=== PATIENT | female | born 1970 | race Caucasian/White ===

== ENCOUNTER 2018-05-18 21:31 | Emergency (ER) | payer BC ==
[2018-05-18 21:48] VITALS: O2SAT 100
[2018-05-18] MEDS ORDERED: BENADRYL 50 MG/ML IV ONE (21:48)
[2018-05-18] MEDS ORDERED: BENADRYL 50 MG/ML ONE (21:55)
--- NOTE | 2018-05-18 21:56 | ERPHSYRPT ---
- History of Present Illness Time Seen by Provider: 05/18/18 21:44 Source: patient Exam Limitations: no limitations Patient Subjective Stated Complaint: Pt arrives to ER with c/o lower lip swelling started around 2044 after eating pasta salad around 1999 that includes black olives stating she had never had olives before. States is only allergic to latex, PCN, Sulfa and teramycin. Denies difficulty breathing or swallowing. Swelling is minor. States mouth is dry from eating tic-tacs but denies tongue swelling. Triage Nursing Assessment: no distress at this time. Physician History: This is a 48-year-old female with history of multiple sclerosis, who is on Getia She arrives with complaint of swollen left lower lip symptoms for approximately one hour She states this began after she ate of pot the salad which contained black olives. She denies any shortness of breath she denies any tongue swelling she denies any other complaints. She states she took one 25 mg Benadryl tablets prior to arrival. Past medical history includes multiple sclerosis past surgical history positive for cholecystectomy and . Timing/Duration: today (20:45) Severity: mild Modifying Factors: Improves With: nothing, other (patient on lisinopril) Associated Symptoms: other (swelling left lower lip), No nausea, No vomiting, No abdominal pain, No shortness of breath, No heartburn, No diaphoresis, No cough, No chills, No chest pain, No fever, No headaches, No loss of appetite, No malaise, No rash, No syncope, No seizure, No weakness Allergies/Adverse Reactions: latex Allergy (Verified 05/18/18 21:42) oxytetracycline [From Terramycin] Allergy (Verified 05/18/18 21:42) Penicillins Allergy (Verified 05/18/18 21:42) Sulfa (Sulfonamide Antibiotics) Allergy (Verified 05/18/18 21:42) Home Medications: Fingolimod HCl [Gilenya] 0.5 mg PO 05/18/18 [History] Lisinopril 20 mg PO 05/18/18 [History] Norgestimate-Ethinyl Estradiol [Tri Femynor 28 Tablet] 1 tab PO 05/18/18 [ History] Ropinirole HCl 0.25 mg PO 05/18/18 [History] Tramadol HCl 50 mg [Ultram 50 mg] 50 mg PO 05/18/18 [History] - Review of Systems Constitutional: No Fever, No Chills Eyes: No Symptoms Ears, Nose, & Throat: Mouth Swelling (swelling left lower lip), Other, No Ear Pain, No Ear Discharge, No Hearing Changes, No Tinnitus, No Nose Pain, No Nose Congestion, No Nose Discharge, No Sinus Drainage, No Epistaxis, No Mouth Pain, No Loose Teeth Respiratory: No Cough, No Dyspnea Cardiac: No Chest Pain, No Edema, No Syncope Abdominal/Gastrointestinal: No Abdominal Pain, No Nausea, No Vomiting, No Diarrhea Genitourinary Symptoms: No Dysuria Musculoskeletal: No Back Pain, No Neck Pain Skin: No Rash Neurological: No Dizziness, No Focal Weakness, No Sensory Changes Psychological: No Symptoms Endocrine: No Symptoms All Other Systems: Reviewed and Negative - Past Medical History Pertinent Past Medical History: Yes Neurological History: No Pertinent History ENT History: No Pertinent History Cardiac History: Hypertension Respiratory History: No Pertinent History Endocrine Medical History: No Pertinent History Musculoskeletal History: No Pertinent History GI Medical History: No Pertinent History History: No Pertinent History Psycho-Social History: No Pertinent History Female Reproductive Disorders: No Pertinent History Other Medical History: Multiple Sclerosis - Past Surgical History Past Surgical History: Yes Neuro Surgical History: No Pertinent History Cardiac: No Pertinent History Respiratory: No Pertinent History Gastrointestinal: Cholecystectomy Genitourinary: No Pertinent History Musculoskeletal: No Pertinent History Female Surgical History: Section - Social History Smoking Status: Never smoker Exposure to second hand smoke: No Drug Use: none Patient Lives Alone: No - Female History Hx Now: No - Nursing Vital Signs Nursing Vital Signs: Initial Vital Signs Temperature 98.7 F 05/18/18 21:34 Pulse Rate 87 05/18/18 21:34 Respiratory Rate 18 05/18/18 21:34 Blood Pressure 182/110 05/18/18 21:34 O2 Sat by Pulse Oximetry 100 05/18/18 21:34 Pain Scale Pain Intensity 0 - Physical Exam General Appearance: no apparent distress, alert Eye Exam: PERRL/EOMI, eyes nml inspection Ears, Nose, Throat Exam: TMs normal, pharynx normal, moist mucous membranes, other (mild swelling left lower lip), No pharyngeal erythema Neck Exam: normal inspection, non-tender, supple, full range of motion Respiratory Exam: normal breath sounds, lungs clear, No respiratory distress Cardiovascular Exam: regular rate/rhythm, normal heart sounds, normal peripheral pulses Gastrointestinal/Abdomen Exam: soft, normal bowel sounds, No tenderness, No mass Back Exam: normal inspection, normal range of motion, No CVA tenderness, No vertebral tenderness Extremity Exam: normal inspection, normal range of motion, pelvis stable Neurologic Exam: alert, oriented x 3, cooperative, 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, normal mood/affect, nml cerebellar function, nml station & gait, sensation nml, No motor deficits Skin Exam: normal color, warm, dry, No rash SpO2 Interpretation: normal (100%) SpO2: 100 Oxygen Delivery: Room Air - Course Nursing assessment & vital signs reviewed: Yes Ordered Tests: Active Orders 24 hr Category Date Time Status IV Insertion STAT Care 05/18/18 21:48 Active Medication Summary Discontinued Medications Generic Name Dose Route Start Last Admin Trade Name Freq PRN Reason Stop Dose Admin Diphenhydramine HCl 25 mg 05/18/18 21:48 05/18/18 22:05 Benadryl 50 Mg/Ml IV 05/18/18 21:49 25 mg STAT ONE Administration Diphenhydramine HCl Confirm 05/18/18 21:55 Benadryl 50 Mg/Ml Administered 05/18/18 21:56 Dose 50 mg .ROUTE .STK-MED ONE - Progress Progress: improved Progress Note: 05/18/18 22:51 This is a 48-year-old white female with a history of multiple sclerosis, high blood pressure She arrives with complaint of swelling on the left side of her lower lip after eating Pasta salad just prior to arrival. She denies any shortness of breath she has no tongue swelling or throat swelling She had taken Benadryl 25 mg orally prior to arrival she is given Benadryl 25 mg IV. She is feeling better she has noted swelling of her face or tongue she does have still has some slight swelling of her lower lip on the left. Patient is on lisinopril for high blood pressure. She is also on an Immuno modulator for her MS. Will plan to discharge patient Vitals are stable patient in no acute distress. Patient to avoid the pasta salad I've also advised that she does not take her lisinopril until she discusses this with her family doctor tomorrow. Patient was not given Solu-Medrol secondary to the fact she is on immuno modultor. - Departure Time of Disposition: 22:55 Departure Disposition: Home Clinical Impression: lower lip edema, rule out angioedema Allergic reaction Qualifiers: Encounter type: initial encounter Qualified Code(s): T78.40XA - Allergy, unspecified, initial encounter Condition: Fair Critical Care Time: No Referrals: LOBO LOCKHART MD [Primary Care Provider] - Additional Instructions: Return home. Plenty of fluids. Benadryl 50 mg orally every 6 hours for the next 2-3 days. Do not need anymore of your Pasta salad. Do not take your lisinopril tomorrow until you discuss this with your family doctor. Contact your family doctor tomorrow and arrange follow-up. Return for acute distress or for severe symptoms. return for any swelling of your tongue, throat, or difficulty breathing
[2018-05-18 22:59] VITALS: BP 164/82; PULSE 86
== END 2018-05-18 23:07 | disposition home or self-care (01) ==
LOC: ED 21:31
DX: R22.0 Localized swelling, mass and lump, head (principal); T78.40XA Allergy, unspecified, initial encounter
CPT/HCPCS: 36000; 96374; 99284; J1200

== ENCOUNTER 2018-07-11 03:10 | Observation (INO) | payer BC ==
[2018-07-11] MEDS ORDERED: Pepcid 20 MG VIAL IV ONE ×2 (03:32→03:37)
[2018-07-11] MEDS ORDERED: Sodium Chloride 0.9% 1000 ML 1,000 ML IV STA (03:32)
[2018-07-11] MEDS ORDERED: Zofran 4 MG/2 ML VIAL IV ONE (03:32)
[2018-07-11] MEDS ORDERED: TORAdol 30 mg Injection IV ONE (03:32)
[2018-07-11] MEDS ORDERED: TORAdol 30 mg Injection ONE (03:37)
[2018-07-11] MEDS ORDERED: Zofran 4 MG/2 ML VIAL ONE (03:37)
[2018-07-11] MEDS ORDERED: Sodium Chloride 0.9% 1000 ML 1,000 ML ONE (03:37)
--- NOTE | 2018-07-11 03:37 | ERPHSYRPT ---
- History of Present Illness Time Seen by Provider: 07/11/18 03:29 Historian: patient Exam Limitations: no limitations Patient Subjective Stated Complaint: Pt arrives to ER with c/o diffuse abdominal pain started around 1999. States 3-4 weeks ago had injury to knee concerned for MRSA and was given Keflex which gave her abdominal pain and was decreased in dose. Pt states pain went away but has now returned. pt also mentions hx of MS. Pt also c/o nausea without vomiting or diarrhea. Denies fever or any other sx. Does not appear to be in any acute distress at this time rating pain 5/10 but states "before I came in my pain was a 30". Triage Nursing Assessment: see above Physician History: C/o diffuse abdominal pain, cramps, nausea since yesterday afternoon, denies vomiting, diarrhea, fever, chills, urinary complaints, no chest pain, cough or SOB. Timing/Duration: yesterday, hour(s) (12) Activities at Onset: none Quality: cramping Abdominal Pain Onset Location: generalized abdomen Pain Radiation: no radiation Severity of Pain-Max: severe Severity of Pain-Current: mild Modifying Factors: Improves With: nothing Associated Symptoms: nausea Previous symptoms: no prior history Allergies/Adverse Reactions: latex Allergy (Verified 07/11/18 03:23) oxytetracycline [From Terramycin] Allergy (Verified 07/11/18 03:23) Penicillins Allergy (Verified 07/11/18 03:23) Sulfa (Sulfonamide Antibiotics) Allergy (Verified 07/11/18 03:23) Home Medications: Fingolimod HCl [Gilenya] 0.5 mg PO 05/18/18 [History] Lisinopril 20 mg PO 05/18/18 [History] Norgestimate-Ethinyl Estradiol [Tri Femynor 28 Tablet] 1 tab PO 05/18/18 [ History] Ropinirole HCl 0.25 mg PO 05/18/18 [History] Tramadol HCl 50 mg [Ultram 50 mg] 50 mg PO 05/18/18 [History] - Review of Systems Constitutional: No Symptoms Abdominal/Gastrointestinal: Abdominal Pain, Nausea All Other Systems: Reviewed and Negative - Past Medical History Pertinent Past Medical History: Yes Neurological History: No Pertinent History ENT History: No Pertinent History Cardiac History: Hypertension Respiratory History: No Pertinent History Endocrine Medical History: No Pertinent History Musculoskeletal History: No Pertinent History GI Medical History: No Pertinent History History: No Pertinent History Psycho-Social History: No Pertinent History Female Reproductive Disorders: No Pertinent History Other Medical History: Multiple Sclerosis - Past Surgical History Past Surgical History: Yes Neuro Surgical History: No Pertinent History Cardiac: No Pertinent History Respiratory: No Pertinent History Gastrointestinal: Cholecystectomy Genitourinary: No Pertinent History Musculoskeletal: No Pertinent History Female Surgical History: Section - Social History Smoking Status: Never smoker Exposure to second hand smoke: No Drug Use: none Patient Lives Alone: No - Female History Hx Now: No - Nursing Vital Signs Nursing Vital Signs: Initial Vital Signs Temperature 97.6 F 07/11/18 03:14 Pulse Rate 87 07/11/18 03:14 Respiratory Rate 22 07/11/18 03:14 Blood Pressure 138/86 07/11/18 03:14 O2 Sat by Pulse Oximetry 99 07/11/18 03:14 Pain Scale Pain Intensity 2 - Physical Exam General Appearance: no apparent distress Eye Exam: eyes nml inspection Ears, Nose, Throat Exam: normal ENT inspection Neck Exam: normal inspection, non-tender, supple Respiratory Exam: normal breath sounds, lungs clear Cardiovascular Exam: regular rate/rhythm, normal heart sounds, normal peripheral pulses Gastrointestinal/Abdomen Exam: soft, normal bowel sounds, tenderness (diffuse), No distention, No mass, No guarding, No rebound, No hernia Back Exam: normal inspection, No CVA tenderness Extremity Exam: normal inspection Neurologic Exam: alert, oriented x 3, normal mood/affect Skin Exam: normal color, warm, dry, No rash Lymphatic Exam: No adenopathy SpO2 Interpretation: normal SpO2: 99 Oxygen Delivery: Room Air - Course Nursing assessment & vital signs reviewed: Yes EKG Interpreted by Me: RATE (87/min), NORMAL AXIS, NORMAL INTERVALS, NORMAL ST-T - CT Exams Abdomen/Pelvis CT Interpretation: Discussed w/radiologist, Other (moderate amount of complex free fluid in the abdomen and pelvis suggesting hemoperitoneum, uncertain etiology.) Ordered Tests: Active Orders 24 hr Category Date Time Status EKG-ER Only STAT Care 07/11/18 03:32 Active IV Insertion STAT Care 07/11/18 03:32 Active NPO (ED) STAT Care 07/11/18 03:32 Active ABDOMEN AND PELVIS W CONTRAST [CT] Stat Exams 07/11/18 03:33 Taken AMYLASE Stat Lab 07/11/18 03:35 Completed CBC W DIFF Stat Lab 07/11/18 03:35 Completed CMP Stat Lab 07/11/18 03:35 Completed HCG QUALITATIVE,SERUM Stat Lab 07/11/18 03:30 Completed LIPASE Stat Lab 07/11/18 03:35 Completed TROPONIN Q3H Lab 07/11/18 03:35 Completed TROPONIN Q3H Lab 07/11/18 06:33 Received TROPONIN Q3H Lab 07/11/18 09:45 Ordered TROPONIN Q3H Lab 07/11/18 12:45 Ordered TROPONIN Q3H Lab 07/11/18 15:45 Ordered UA W/RFX UR CULTURE Stat Lab 07/11/18 06:20 Received Medication Summary Discontinued Medications Generic Name Dose Route Start Last Admin Trade Name Freq PRN Reason Stop Dose Admin Famotidine 20 mg 07/11/18 03:32 07/11/18 03:55 Pepcid 20 Mg Vial IV 07/11/18 03:33 20 mg STAT ONE Administration Famotidine Confirm 07/11/18 03:37 Pepcid 20 Mg Vial Administered 07/11/18 03:38 Dose 20 mg IV .STK-MED ONE Sodium Chloride 1,000 mls @ 999 mls/hr 07/11/18 03:32 07/11/18 04:55 Sodium Chloride 0.9% 1000 Ml IV 07/11/18 04:32 Infused .Q1H1M STA Infusion Sodium Chloride Confirm 07/11/18 03:37 Sodium Chloride 0.9% 1000 Ml Administered 07/11/18 03:38 Dose 1,000 mls @ ud .ROUTE .STK-MED ONE Ketorolac Tromethamine 30 mg 07/11/18 03:32 07/11/18 03:55 Toradol 30 Mg Injection IV 07/11/18 03:33 30 mg STAT ONE Administration Ketorolac Tromethamine Confirm 07/11/18 03:37 Toradol 30 Mg Injection Administered 07/11/18 03:38 Dose 30 mg .ROUTE .STK-MED ONE Ondansetron HCl 4 mg 07/11/18 03:32 07/11/18 03:55 Zofran 4 Mg/2 Ml Vial IV 07/11/18 03:33 4 mg STAT ONE Administration Ondansetron HCl Confirm 07/11/18 03:37 Zofran 4 Mg/2 Ml Vial Administered 07/11/18 03:38 Dose 4 mg .ROUTE .STK-MED ONE Lab/Rad Data: Laboratory Result Diagrams 07/11/18 03:35 07/11/18 03:35 Laboratory Results 07/11/18 07/11/18 07/11/18 Range/Units 03:35 03:35 03:35 WBC 13.4 H (4.0-10.5) K/mm3 RBC 4.51 (4.1-5.4) M/mm3 Hgb 13.1 (12.0-16.0) gm/dl Hct 40.1 (35-47) % MCV 88.9 (78-100) fl MCH 29.0 (26-32) pg MCHC 32.7 (32-36) g/dl RDW 14.3 H (11.5-14.0) % Plt Count 222 (150-450) K/mm3 MPV 12.6 H (6-9.5) fl Gran % 89.2 H (36.0-66.0) % Eos # (Auto) 0.10 (0-0.5) Absolute Lymphs (auto) 0.44 L (1.0-4.6) Absolute Monos (auto) 0.90 (0.0-1.3) Lymphocytes % 3.3 L (24.0-44.0) % Monocytes % 6.7 (0.0-12.0) % Eosinophils % 0.7 (0.00-5.0) % Basophils % 0.1 (0.0-0.4) % Absolute Granulocytes 11.98 H (1.4-6.9) Basophils # 0.02 (0-0.4) Sodium 138 (137-145) mmol/L Potassium 4.6 (3.5-5.1) mmol/L Chloride 102 (98-107) mmol/L Carbon Dioxide 28 (22-30) mmol/L Anion Gap 13.0 (5-15) MEQ/L BUN 17 (7-17) mg/dL Creatinine 0.44 L (0.52-1.04) mg/dL Estimated GFR > 60.0 ML/MIN Glucose 112 H (74-106) mg/dL Calcium 9.8 (8.4-10.2) mg/dL Total Bilirubin 0.40 (0.2-1.3) mg/dL AST 18 (14-36) U/L ALT 11 (0-35) U/L Alkaline Phosphatase 60 (38-126) U/L Troponin I < 0.012 (0.000-0.034) ng/mL Serum Total Protein 7.3 (6.3-8.2) g/dL Albumin 4.2 (3.5-5.0) g/dL Amylase 72 (30-110) U/L Lipase 113 (23-300) U/L Serum , Qual (Negative) Slides for Path Review YES 07/11/18 Range/Units 03:30 WBC (4.0-10.5) K/mm3 RBC (4.1-5.4) M/mm3 Hgb (12.0-16.0) gm/dl Hct (35-47) % MCV (78-100) fl MCH (26-32) pg MCHC (32-36) g/dl RDW (11.5-14.0) % Plt Count (150-450) K/mm3 MPV (6-9.5) fl Gran % (36.0-66.0) % Eos # (Auto) (0-0.5) Absolute Lymphs (auto) (1.0-4.6) Absolute Monos (auto) (0.0-1.3) Lymphocytes % (24.0-44.0) % Monocytes % (0.0-12.0) % Eosinophils % (0.00-5.0) % Basophils % (0.0-0.4) % Absolute Granulocytes (1.4-6.9) Basophils # (0-0.4) Sodium (137-145) mmol/L Potassium (3.5-5.1) mmol/L Chloride (98-107) mmol/L Carbon Dioxide (22-30) mmol/L Anion Gap (5-15) MEQ/L BUN (7-17) mg/dL Creatinine (0.52-1.04) mg/dL Estimated GFR ML/MIN Glucose (74-106) mg/dL Calcium (8.4-10.2) mg/dL Total Bilirubin (0.2-1.3) mg/dL AST (14-36) U/L ALT (0-35) U/L Alkaline Phosphatase (38-126) U/L Troponin I (0.000-0.034) ng/mL Serum Total Protein (6.3-8.2) g/dL Albumin (3.5-5.0) g/dL Amylase (30-110) U/L Lipase (23-300) U/L Serum , Qual NEGATIVE (Negative) Slides for Path Review - Progress Progress: improved Progress Note: 07/11/18 06:45 I discussed the results and her current condition with Dr Ramonita Lord, surgeon and Dr Pickens, they accepted her to be admitted for observation. Patient has been hemodynamically stable, they were informed about admission, agreed. Discussed with Dr.: Daysi Pickens Will see patient in: hospital (observation) Counseled pt/family regarding: lab results, diagnosis, need for follow-up, rad results - Departure Time of Disposition: 06:47 Departure Disposition: Observation Clinical Impression: Hemoperitoneum (nontraumatic) Condition: Stable Critical Care Time: No Referrals: LOBO PICKENS MD [Primary Care Provider] -
[2018-07-11 03:46] LABS: BASOPHIL % 0.1 % (0.0-0.4); Basophil (Absolute #) 0.02 (0-0.4); Eosinophil % 0.7 % (0.00-5.0); Granulocyte Absolute (ANC) 11.98 (1.4-6.9); Granulocytes % 89.2 % (36.0-66.0); Hematocrit 40.1 % (35-47); Hemoglobin 13.1 gm/dl (12.0-16.0); Lymphocyte (Absolute #) 0.44 (1.0-4.6); Lymphocytes % 3.3 % (24.0-44.0); Mean Cell Volume 88.9 fl (78-100); Mean Corpuscular Hgb Concent. 32.7 g/dl (32-36); Mean Platelet Volume 12.6 fl (6-9.5); Monocytes % 6.7 % (0.0-12.0); Platelet Count 222 K/mm3 (150-450); Red Blood Count 4.51 M/mm3 (4.1-5.4); Red Cell Distribution Width 14.3 % (11.5-14.0); White Blood Count 13.4 K/mm3 (4.0-10.5)
[2018-07-11 04:08] LABS: ALBUMIN 4.2 g/dL (3.5-5.0); ALKALINE PHOSPHATASE 60 U/L (38-126); AMYLASE 72 U/L (30-110); BLOOD UREA NITROGEN 17 mg/dL (7-17); CHLORIDE 102 mmol/L (98-107); Calcium 9.8 mg/dL (8.4-10.2); Carbon Dioxide 28 mmol/L (22-30); Creatinine 1 0.44 mg/dL (0.52-1.04); Glucose 112 mg/dL (74-106); LIPASE 113 U/L (23-300); Potassium 4.6 mmol/L (3.5-5.1); SGOT/AST 18 U/L (14-36); SGPT/ALT 11 U/L (0-35); SODIUM 138 mmol/L (137-145); Total Protein 7.3 g/dL (6.3-8.2)
[2018-07-11 04:55] LABS: Slide Review 1 YES
[2018-07-11 06:42] LABS: Appearance SLIGHTLY CLOUDY (CLEAR); Bilirubin NEGATIVE (NEGATIVE); Blood NEGATIVE Ery/ul (0-5); Glucose NEGATIVE (NEGATIVE); Ketones NEGATIVE (NEGATIVE); Leukocyte Esterase NEGATIVE (NEGATIVE); Nitrite NEGATIVE (NEGATIVE); Protein,Urine Dip NEGATIVE (Negative); Specific Gravity 1.017 (1.005-1.025); Urobilinogen 2 mg/dL (0-1)
[2018-07-11 07:22] LABS: Hematocrit 39.4 % (35-47); Hemoglobin 12.7 gm/dl (12.0-16.0)
[2018-07-11] MEDS ORDERED: Sodium Chloride 0.9% 1000 ML 1,000 ML IV SCH (07:24)
[2018-07-11] MEDS ORDERED: Zofran 4 MG/2 ML VIAL IV PRN (07:24)
[2018-07-11] MEDS ORDERED: MORPHINE SULFATE 2 MG INJ IV PRN (07:24)
[2018-07-11 07:38] LABS: BASOPHIL % 0.1 % (0.0-0.4); Basophil (Absolute #) 0.01 (0-0.4); Eosinophil % 0.4 % (0.00-5.0); Eosinophil (Absolute #) 0.04 (0-0.5); Granulocyte Absolute (ANC) 9.54 (1.4-6.9); Lymphocytes % 3.8 % (24.0-44.0); Mean Cell Volume 89.5 fl (78-100); Mean Corpuscular Hemoglobin 28.9 pg (26-32); Mean Corpuscular Hgb Concent. 32.2 g/dl (32-36); Mean Platelet Volume 12.4 fl (6-9.5); Monocyte (Absolute #) 0.49 (0.0-1.3); Monocytes % 4.7 % (0.0-12.0); Platelet Count 215 K/mm3 (150-450); Red Cell Distribution Width 14.2 % (11.5-14.0); White Blood Count 10.5 K/mm3 (4.0-10.5)
[2018-07-11 07:49] LABS: ANION GAP 13.8 MEQ/L (5-15); BLOOD UREA NITROGEN 13 mg/dL (7-17); CHLORIDE 106 mmol/L (98-107); Calcium 9.4 mg/dL (8.4-10.2); Carbon Dioxide 25 mmol/L (22-30); Creatinine 1 0.47 mg/dL (0.52-1.04); Glucose 111 mg/dL (74-106); Potassium 4.2 mmol/L (3.5-5.1); SODIUM 140 mmol/L (137-145)
[2018-07-11] MEDS: PROTONIX 40 MG IV IV SCH (08:24)
--- NOTE | 2018-07-11 08:45 | XRAY ---
Indication: Abdomen pain and nausea. Multiple contiguous axial images obtained through the abdomen and pelvis using 80 cc Isovue 370 contrast only. Comparison: None Lung bases are clear. Heart is not enlarged. Noncontrasted stomach and bowel loops appear nonobstructed. Normal appendix. Mild/moderate diffuse scattered colonic fecal debris throughout including rectum. There is mild abdominal and pelvic free fluid but no walled off fluid collection or free air. Spleen demonstrates 2 linear defects possibly developmental clefts. Laceration not completely excluded in the right clinical setting. Previous cholecystectomy. Remaining liver, pancreas, adrenal glands, kidneys, ureters, bladder, uterus, and aorta appear unremarkable. No pathologic retroperitoneal lymphadenopathy. Osseous structures intact. Impression: 1. Abdominal and pelvic free fluid of uncertain etiology. 2. 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 Laceration not completely excluded if history of recent trauma and would also explain the free fluid/hemoperitoneum. 2. Mild fecal stasis without obstruction. Comment: Preliminary interpretation was made by [facility]. No critical discrepancy. CTDI 10.89
--- NOTE | 2018-07-11 09:18 | PCM.HP ---
History of Present Illness - Chief Complaint Chief Complaint: Hemoperitoneum History of Present Illness: is a 48 year old female pt of Dr. Pickens with MS and HTN who came in to ER and was admitted for abd pain and possible hemoperitoneum on CT abd/pelvis. She started having generalized abd pain about 3 wks ago when she took keflex for a cough. She stopped the keflex and the pain seemed to resolve. It returned last night, generalized, getting up to "30" out of 10 prior to arrival at ER. Now it has localized to the LUQ and is a "0-1"/10. She denies any abdominal trauma recently. Abd surgeries have been c/s x 2 and cholecystectomy, both remote. - Review of Systems Constitutional: Weight Loss (purposeful), No Fever, No Chills Respiratory: Cough (improving; no hemoptysis) Psychological: No Anxiety, No Depression, No Suicidal Ideations Medications & Allergies Home Medications: Home Medication List Fingolimod HCl [Gilenya] 0.5 mg PO QAM 05/18/18 [History Confirmed 07/11/18] Lisinopril 20 mg PO QAM 05/18/18 [History Confirmed 07/11/18] Norgestimate-Ethinyl Estradiol [Tri Femynor 28 Tablet] 1 tab PO QAM 05/18/18 [ History Confirmed 07/11/18] Ropinirole HCl 0.25 mg PO HS 05/18/18 [History Confirmed 07/11/18] Tramadol HCl 50 mg [Ultram 50 mg] 50 mg PO HSPRN PRN 05/18/18 [History Confirmed 07/11/18] Cholecalciferol (Vitamin D3) [Vitamin D] 4,000 unit PO QAM 07/11/18 [ History Confirmed 07/11/18] Cyanocobalamin 500 Mcg [Vitamin B-12 500 MCG] 1,500 mcg PO QAM 07/11/18 [ History Confirmed 07/11/18] L.acidoph,Paracasei, B.lactis [Probiotic] 1 each PO QAM 07/11/18 [History Confirmed 07/11/18] Allergies/Adverse Reactions: Allergies Allergy/AdvReac Type Severity Reaction Status Date / Time latex Allergy Verified 07/11/18 03:23 oxytetracycline Allergy Verified 07/11/18 03:23 [From Terramycin] Penicillins Allergy Verified 07/11/18 03:23 Sulfa (Sulfonamide Allergy Verified 07/11/18 03:23 Antibiotics) olive oil AdvReac Swelling Verified 07/11/18 07:45 of Tongue and Lips - Past Medical History Past Medical History: Yes Neurological History: Other ENT History: No Pertinent History Cardiac History: Hypertension Respiratory History: No Pertinent History Endocrine Medical History: No Pertinent History Musculoskelatal History: No Pertinent History GI Medical History: No Pertinent History History: No Pertinent History Pyscho-Social History: No Pertinent History Reproductive Disorders: No Pertinent History Comment: Multiple Sclerosis - Female History Are you now?: No - Past Surgical History Past Surgical History: Yes Neuro Surgical History: No Pertinent History Cardiac History: No Pertinent History Respiratory Surgery: No Pertinent History GI Surgical History: Cholecystectomy Genitourinary Surgical Hx: No Pertinent History Musculskeletal Surgical Hx: No Pertinent History Female Surgical History: Section Other Surgical History: 2 C sections - Social History Smoking Status: Former smoker Exposure to second hand smoke: No Alcohol: None Drug Use: none - Physical Exam Vital Signs: Vital Signs - 24 hr Temp Pulse Resp BP Pulse Ox 07/11/18 08:43 98.1 F 104 H 16 173/82 96 07/11/18 07:20 98.1 F 104 H 16 173/82 96 07/11/18 06:49 99 07/11/18 06:00 91 H 18 136/80 98 07/11/18 05:30 90 18 149/84 99 07/11/18 04:30 90 18 131/76 100 07/11/18 04:00 85 18 146/92 100 07/11/18 03:14 97.6 F 87 22 138/86 99 General Appearance: no apparent distress, alert Neurologic Exam: oriented x 3, cooperative, normal mood/affect Eye Exam: eyes nml inspection Ears, Nose, Throat Exam: moist mucous membranes Neck Exam: normal inspection, non-tender, No lymphadenopathy Respiratory Exam: normal breath sounds, lungs clear, No prolonged expirations, No crackles/rales, No rhonchi Cardiovascular Exam: regular rate/rhythm, normal heart sounds, No murmur Back Exam: normal inspection, No CVA tenderness, No rash Extremity Exam: normal inspection, No pedal edema, No swelling Skin Exam: normal color, warm, dry, No rash Results - Labs Lab/Micro Results: Lab Results-Last 24 Hours 07/11/18 07/11/18 07/11/18 Range/Units 03:30 03:35 03:35 WBC 13.4 H (4.0-10.5) K/mm3 RBC 4.51 (4.1-5.4) M/mm3 Hgb 13.1 (12.0-16.0) gm/dl Hct 40.1 (35-47) % MCV 88.9 (78-100) fl MCH 29.0 (26-32) pg MCHC 32.7 (32-36) g/dl RDW 14.3 H (11.5-14.0) % Plt Count 222 (150-450) K/mm3 MPV 12.6 H (6-9.5) fl Gran % 89.2 H (36.0-66.0) % Eos # (Auto) 0.10 (0-0.5) Absolute Lymphs (auto) 0.44 L (1.0-4.6) Absolute Monos (auto) 0.90 (0.0-1.3) Lymphocytes % 3.3 L (24.0-44.0) % Monocytes % 6.7 (0.0-12.0) % Eosinophils % 0.7 (0.00-5.0) % Basophils % 0.1 (0.0-0.4) % Absolute Granulocytes 11.98 H (1.4-6.9) Basophils # 0.02 (0-0.4) Sodium 138 (137-145) mmol/L Potassium 4.6 (3.5-5.1) mmol/L Chloride 102 (98-107) mmol/L Carbon Dioxide 28 (22-30) mmol/L Anion Gap 13.0 (5-15) MEQ/L BUN 17 (7-17) mg/dL Creatinine 0.44 L (0.52-1.04) mg/dL Estimated GFR > 60.0 ML/MIN Glucose 112 H (74-106) mg/dL Calcium 9.8 (8.4-10.2) mg/dL Total Bilirubin 0.40 (0.2-1.3) mg/dL AST 18 (14-36) U/L ALT 11 (0-35) U/L Alkaline Phosphatase 60 (38-126) U/L Troponin I (0.000-0.034) ng/mL Serum Total Protein 7.3 (6.3-8.2) g/dL Albumin 4.2 (3.5-5.0) g/dL Amylase 72 (30-110) U/L Lipase 113 (23-300) U/L Serum , Qual NEGATIVE (Negative) Urine Color (YELLOW) Urine Appearance (CLEAR) Urine pH (5-6) Ur Specific [place] (1.005-1.025) Urine Protein (Negative) Urine Ketones (NEGATIVE) Urine Blood (0-5) Tavo/ul Urine Nitrite (NEGATIVE) Urine Bilirubin (NEGATIVE) Urine Urobilinogen (0-1) mg/dL Ur Leukocyte Esterase (NEGATIVE) Urine WBC (Auto) (0-5) /HPF Urine RBC (Auto) (0-2) /HPF U Epithel Cells (Auto) (FEW) /HPF Urine Mucus (Auto) (NEGATIVE) /HPF Urine Culture Reflexed (NO) Urine Glucose (NEGATIVE) mg/dL Slides for Path Review YES 07/11/18 07/11/18 07/11/18 Range/Units 03:35 06:20 06:33 WBC (4.0-10.5) K/mm3 RBC (4.1-5.4) M/mm3 Hgb (12.0-16.0) gm/dl Hct (35-47) % MCV (78-100) fl MCH (26-32) pg MCHC (32-36) g/dl RDW (11.5-14.0) % Plt Count (150-450) K/mm3 MPV (6-9.5) fl Gran % (36.0-66.0) % Eos # (Auto) (0-0.5) Absolute Lymphs (auto) (1.0-4.6) Absolute Monos (auto) (0.0-1.3) Lymphocytes % (24.0-44.0) % Monocytes % (0.0-12.0) % Eosinophils % (0.00-5.0) % Basophils % (0.0-0.4) % Absolute Granulocytes (1.4-6.9) Basophils # (0-0.4) Sodium (137-145) mmol/L Potassium (3.5-5.1) mmol/L Chloride (98-107) mmol/L Carbon Dioxide (22-30) mmol/L Anion Gap (5-15) MEQ/L BUN (7-17) mg/dL Creatinine (0.52-1.04) mg/dL Estimated GFR ML/MIN Glucose (74-106) mg/dL Calcium (8.4-10.2) mg/dL Total Bilirubin (0.2-1.3) mg/dL AST (14-36) U/L ALT (0-35) U/L Alkaline Phosphatase (38-126) U/L Troponin I < 0.012 < 0.012 (0.000-0.034) ng/mL Serum Total Protein (6.3-8.2) g/dL Albumin (3.5-5.0) g/dL Amylase (30-110) U/L Lipase (23-300) U/L Serum , Qual (Negative) Urine Color YELLOW (YELLOW) Urine Appearance SLIGHTLY CLOUDY (CLEAR) Urine pH 7.0 (5-6) Ur Specific [place] 1.017 (1.005-1.025) Urine Protein NEGATIVE (Negative) Urine Ketones NEGATIVE (NEGATIVE) Urine Blood NEGATIVE (0-5) Tavo/ul Urine Nitrite NEGATIVE (NEGATIVE) Urine Bilirubin NEGATIVE (NEGATIVE) Urine Urobilinogen 2 (0-1) mg/dL Ur Leukocyte Esterase NEGATIVE (NEGATIVE) Urine WBC (Auto) 3-5 (0-5) /HPF Urine RBC (Auto) 0-2 (0-2) /HPF U Epithel Cells (Auto) RARE (FEW) /HPF Urine Mucus (Auto) SLIGHT (NEGATIVE) /HPF Urine Culture Reflexed YES (NO) Urine Glucose NEGATIVE (NEGATIVE) mg/dL Slides for Path Review 07/11/18 07/11/18 Range/Units 07:09 07:24 WBC 10.5 (4.0-10.5) K/mm3 RBC 4.40 (4.1-5.4) M/mm3 Hgb 12.7 (12.0-16.0) gm/dl Hct 39.4 (35-47) % MCV 89.5 (78-100) fl MCH 28.9 (26-32) pg MCHC 32.2 (32-36) g/dl RDW 14.2 H (11.5-14.0) % Plt Count 215 (150-450) K/mm3 MPV 12.4 H (6-9.5) fl Gran % 91.0 H (36.0-66.0) % Eos # (Auto) 0.04 (0-0.5) Absolute Lymphs (auto) 0.40 L (1.0-4.6) Absolute Monos (auto) 0.49 (0.0-1.3) Lymphocytes % 3.8 L (24.0-44.0) % Monocytes % 4.7 (0.0-12.0) % Eosinophils % 0.4 (0.00-5.0) % Basophils % 0.1 (0.0-0.4) % Absolute Granulocytes 9.54 H (1.4-6.9) Basophils # 0.01 (0-0.4) Sodium 140 (137-145) mmol/L Potassium 4.2 (3.5-5.1) mmol/L Chloride 106 (98-107) mmol/L Carbon Dioxide 25 (22-30) mmol/L Anion Gap 13.8 (5-15) MEQ/L BUN 13 (7-17) mg/dL Creatinine 0.47 L (0.52-1.04) mg/dL Estimated GFR > 60.0 ML/MIN Glucose 111 H (74-106) mg/dL Calcium 9.4 (8.4-10.2) mg/dL Total Bilirubin (0.2-1.3) mg/dL AST (14-36) U/L ALT (0-35) U/L Alkaline Phosphatase (38-126) U/L Troponin I (0.000-0.034) ng/mL Serum Total Protein (6.3-8.2) g/dL Albumin (3.5-5.0) g/dL Amylase (30-110) U/L Lipase (23-300) U/L Serum , Qual (Negative) Urine Color (YELLOW) Urine Appearance (CLEAR) Urine pH (5-6) Ur Specific [place] (1.005-1.025) Urine Protein (Negative) Urine Ketones (NEGATIVE) Urine Blood (0-5) Tavo/ul Urine Nitrite (NEGATIVE) Urine Bilirubin (NEGATIVE) Urine Urobilinogen (0-1) mg/dL Ur Leukocyte Esterase (NEGATIVE) Urine WBC (Auto) (0-5) /HPF Urine RBC (Auto) (0-2) /HPF U Epithel Cells (Auto) (FEW) /HPF Urine Mucus (Auto) (NEGATIVE) /HPF Urine Culture Reflexed (NO) Urine Glucose (NEGATIVE) mg/dL Slides for Path Review - Radiology Impressions Radiology Exams & Impressions: Radiology Procedures Category Date Time Status ABDOMEN AND PELVIS W CONTRAST [CT] Stat Exams 07/11/18 03:33 Completed Assessment/Plan (1) Hemoperitoneum (nontraumatic) Current Visit: Yes Status: Acute Assessment & Plan: Await surgery consultation, thank you. Pt has been hemodynamically stable. Code(s): K66.1 - HEMOPERITONEUM (2) Abdominal pain Current Visit: Yes Status: Acute Qualifiers: Abdominal location: left upper quadrant Qualified Code(s): R10.12 - Left upper quadrant pain Assessment & Plan: Much improved. Still NPO. Code(s): R10.9 - UNSPECIFIED ABDOMINAL PAIN
[2018-07-11] MEDS ORDERED: NON-FORMULARY ITEM (L.Acidoph,Paracasei, B.Lactis [Probiotic] 1 EACH) PO SCH (10:00)
[2018-07-11] MEDS ORDERED: FINGOLIMOD HCL 0.5 MG PO SCH (10:00)
[2018-07-11] MEDS ORDERED: FLUZONE QUAD (36mo-64yo) 2018-2019 SYRINGE IM ONE (10:00)
[2018-07-11] MEDS ORDERED: MEDICATION INTERVENTION MC SCH (10:15)
[2018-07-11] MEDS: Acidophilus TABLET PO SCH (10:37)
[2018-07-11] MEDS: Zestril 20 MG PO SCH (10:37)
[2018-07-11 15:25] LABS: Hematocrit 35.7 % (35-47); Hemoglobin 11.3 gm/dl (12.0-16.0)
[2018-07-11] MEDS ORDERED: Sodium Chloride 0.9% 10 ML FLUSH Syringe IV PRN (16:30)
[2018-07-11] MEDS: Requip 0.5 MG PO SCH (21:25)
[2018-07-11] MEDS: Sodium Chloride 0.9% 10 ML FLUSH Syringe IV SCH (21:26)
[2018-07-12] MEDS: Sodium Chloride 0.9% 10 ML FLUSH Syringe IV SCH ×3 (05:25→22:07)
[2018-07-12] MEDS: PATIENT OWN MEDICATION PO SCH (07:54)
--- NOTE | 2018-07-12 08:14 | CONS ---
CONSULT DATE: 07/11/2018 HISTORY: The patient is a 48 year-old female who came in the middle of the night with generalized abdominal pain. She said she had a bad coughing episode three weeks ago that resolved. She also had extremity or knee leg issue there was concern about Staphylococcus infection treated with Keflex initially and this gave her some abdominal pain that resolved after she stopped the Keflex. She denied any bloody stools or diarrhea. She had some nausea but no vomiting. No fever. She did have some anemia due to heavy vaginal bleeding in the past but had hormones stopped per Dr. Javier a month ago. Before she was seen in the emergency room the pain was 30 over 10 and now she said it has basically resolved. She has not had any pain medicine for several hours. She is feeling much better this afternoon. She said she was afebrile here. She received fluid bolus and has been having IV fluid run. Her hemoglobin is 11.3 now. test was reportedly negative. White blood cell count was normal this morning at 10.5. Liver function test, lipase and amylase were normal. HCG negative. PAST SURGICAL HISTORY: section and cholecystectomy in the past. PAST MEDICAL HISTORY: As mentioned above. She also had multiple sclerosis in the past. MEDICATIONS: Home medications include Gilenya, lisinopril for some hypertension, Tri Femynor, ropinirole, tramadol. ALLERGIES: LATEX, TERAMYCIN, PENICILLIN, SULFA. FAMILY HISTORY: Negative in regards to this problem. SOCIAL HISTORY: No smoking or alcohol abuse. LAB DATA AND TESTS: CT scan showed some free fluid in the abdomen and pelvis unsure of etiology, in fact there were possible linear clefts in the spleen. This patient denies any splenic area trauma. No obvious liver issues. REVIEW OF SYSTEMS: Twelve systems reviewed per admission assessment. No chest pain or palpitations other systems negative or noncontributory as above and per preadmission questionnaire. Again, she is feeling much better today, wanted to eat and did not have any pain medication for some time. PHYSICAL EXAMINATION: GENERAL: No acute distress. HEENT: Sclera nonicteric. NECK: No JVD. CHEST: Equal excursion, nonlabored breathing. CVS: Regular rate, rhythm and pulse. ABDOMEN: Soft. No significant tenderness. She has minimal tenderness on her ribs themselves as she had severe coughing a few weeks ago. No creptitus. She is nontender in her left upper quadrant over the splenic area itself. No peritoneal signs. EXTREMITIES: No significant edema. NEURO: Alert, moving extremities grossly symmetrically. IMPRESSION: Some abdominal pain basically resolved with some free fluid on the CT scan of unclear etiology and the fact that she had sudden onset of this pain which is resolving quickly, I question whether she had hemorrhagic ruptured cyst versus other etiology. She denies any splenic trauma. Either way no emergent surgical intervention necessary at this point as her pain has basically resolved. Her abdomen is soft. There are no peritoneal signs. Nonacute surgical abdomen at this time. The patient agrees to the plan. Will allow her to eat. Hep lock with IV fluids. Disposition medical to Dr. Benitez or Dr. Pickens will decide whether to keep her overnight and repeat labs tomorrow. Likely she will benefit from following up with a cafe operator post-discharge to see what their opinion is but either way no emergent surgery necessary, continue observation and medical management.
--- NOTE | 2018-07-12 09:28 | PCM.NOTE ---
Date and Time: 07/12/18922 Subjective Assessment: patient tolerating po, has some mild tenderness to epigastrium and left upper quadrant. has been coughing for the last 3-4 weeks, was on keflex. cough has been productive of green sputum and she is very sore from coughing. Objective Exam General Appearance: no apparent distress, alert Skin Exam: normal color, warm, dry Respiratory Exam: rhonchi, No respiratory distress Cardiovascular Exam: regular rate/rhythm, normal heart sounds Gastrointestinal/Abdomen Exam: soft, No tenderness, No mass Extremity Exam: normal inspection, normal range of motion OBJECTIVE DATA Vital Signs: Vital Signs - 24 hr Temp Pulse Resp BP Pulse Ox 07/12/18 07:27 97.5 F 85 18 120/66 100 07/12/18 04:03 98.0 F 73 16 112/53 97 07/11/18 23:42 98.8 F 76 16 119/61 98 07/11/18 20:02 98.5 F 82 16 135/71 98 07/11/18 16:00 98.2 F 89 18 142/64 96 07/11/18 11:57 98.4 F 89 16 134/65 99 Pain Assessment - Last Documented Pain Intensity 2 Pain Scale Used 0-10 Pain Scale Intake and Output: Intake & Output 07/09/18 07/10/18 07/11/18 07/12/18 11:59 11:59 11:59 11:59 Intake Total 2081 Output Total 400 500 Balance -400 1581 Weight 59.7 kg Lab Results: Lab Results-Last 24 Hours 07/11/18 07/11/18 Range/Units 09:48 14:56 Hgb 11.3 L (12.0-16.0) gm/dl Hct 35.7 (35-47) % Troponin I < 0.012 (0.000-0.034) ng/mL Radiology Exams: Radiology Procedures Category Date Time Status ABDOMEN AND PELVIS W CONTRAST [CT] Stat Exams 07/11/18 03:33 Completed Assessment/Plan (1) Acute bronchitis Current Visit: Yes Status: Acute Assessment & Plan: patient with course breath sounds m[facility] lung bases, will get chest xray. start on levaquin and albuterol. order for [facility] Code(s): J20.9 - ACUTE BRONCHITIS, UNSPECIFIED (2) Abdominal pain Current Visit: Yes Status: Acute Qualifiers: Abdominal location: left upper quadrant Qualified Code(s): R10.12 - Left upper quadrant pain Assessment & Plan: appreciate surgery input, likely cystic fluid based on history. perhaps her cough precipitated rupture of ovarian cyst etc. Code(s): R10.9 - UNSPECIFIED ABDOMINAL PAIN (3) Hemoperitoneum (nontraumatic) Current Visit: Yes Status: Acute Code(s): K66.1 - HEMOPERITONEUM
[2018-07-12] MEDS ORDERED: TYLENOL 325 MG PO PRN (09:29)
--- NOTE | 2018-07-12 09:55 | XRAY ---
Indication: Productive cough 4 weeks. Comparison: None PA/lateral chest demonstrates normal heart, lungs, and bony thorax.
[2018-07-12] MEDS: Levofloxacin 500 MG Tablet PO SCH (10:13)
[2018-07-12] MEDS: Acidophilus TABLET PO SCH (10:13)
[2018-07-12] MEDS: Zestril 20 MG PO SCH (10:14)
[2018-07-12] MEDS: PROTONIX 40 MG IV IV SCH (10:15)
[2018-07-12] MEDS: Tussionex Pennkinetic Susp PO PRN (10:18)
[2018-07-12] MEDS: PROVENTIL 2.5 MG/3 ML NEB IH SCH ×3 (11:05→19:44)
[2018-07-12] MEDS ORDERED: NORCO 5/325 MG PO PRN (15:23)
[2018-07-12] MEDS: Requip 0.5 MG PO SCH (22:06)
[2018-07-13 05:48] LABS: BASOPHIL % 0.5 % (0.0-0.4); Basophil (Absolute #) 0.02 (0-0.4); Eosinophil % 2.5 % (0.00-5.0); Eosinophil (Absolute #) 0.09 (0-0.5); Granulocyte Absolute (ANC) 2.94 (1.4-6.9); Granulocytes % 80.5 % (36.0-66.0); Hematocrit 32.7 % (35-47); Hemoglobin 10.2 gm/dl (12.0-16.0); Lymphocyte (Absolute #) 0.24 (1.0-4.6); Lymphocytes % 6.6 % (24.0-44.0); Mean Cell Volume 91.9 fl (78-100); Mean Corpuscular Hgb Concent. 31.2 g/dl (32-36); Mean Platelet Volume 12.6 fl (6-9.5); Monocyte (Absolute #) 0.36 (0.0-1.3); Monocytes % 9.9 % (0.0-12.0); Platelet Count 184 K/mm3 (150-450); Red Blood Count 3.56 M/mm3 (4.1-5.4); Red Cell Distribution Width 14.4 % (11.5-14.0); White Blood Count 3.7 K/mm3 (4.0-10.5)
[2018-07-13 05:54] LABS: Mean Corpuscular Hemoglobin 28.6 pg (26-32)
[2018-07-13 06:03] LABS: ANION GAP 8.8 MEQ/L (5-15); BLOOD UREA NITROGEN 12 mg/dL (7-17); CHLORIDE 106 mmol/L (98-107); Calcium 8.8 mg/dL (8.4-10.2); Carbon Dioxide 28 mmol/L (22-30); Creatinine 1 0.45 mg/dL (0.52-1.04); Glucose 99 mg/dL (74-106); Potassium 4.4 mmol/L (3.5-5.1); SODIUM 139 mmol/L (137-145)
[2018-07-13] MEDS: Sodium Chloride 0.9% 10 ML FLUSH Syringe IV SCH (06:11)
[2018-07-13] MEDS: PROVENTIL 2.5 MG/3 ML NEB IH SCH (06:58)
[2018-07-13 07:00] VITALS: PULSE 107
[2018-07-13 07:31] VITALS: BP 133/64; O2SAT 100
[2018-07-13] MEDS: PATIENT OWN MEDICATION PO SCH (07:36)
[2018-07-13] MEDS: Acidophilus TABLET PO SCH (07:39)
[2018-07-13] MEDS: Levofloxacin 500 MG Tablet PO SCH (07:39)
[2018-07-13] MEDS: Zestril 20 MG PO SCH (07:39)
[2018-07-13] MEDS: PROTONIX 40 MG IV IV SCH (07:39)
[2018-07-13] MEDS: Tussionex Pennkinetic Susp PO PRN (07:46)
--- NOTE | 2018-07-13 08:31 | PCM.DS ---
Discharge Summary Date of Admission: 07/11/18 07:22 Admitting Physician: LOBO LOCKHART Consults: Consults on Case 07/11/18 07:24 Consult Surgery Primary Care Provider: LOBO LOCKHART Allergies Allergies latex Allergy (Verified 07/11/18 03:23) oxytetracycline [From Terramycin] Allergy (Verified 07/11/18 03:23) Penicillins Allergy (Verified 07/11/18 03:23) Sulfa (Sulfonamide Antibiotics) Allergy (Verified 07/11/18 03:23) olive oil Adverse Reaction (Verified 07/11/18 07:45) Swelling of Tongue and Lips Hospital Summary - Hospital Course Hospital Course: patient presented with abd pain and was found to have free fluid in abdomen on CT, was seen by surgery. no acute surgical intervention required, she has no abdominal pain and is tolerating a regular diet at this time. has had productive cough - Vitals & Intake/Output Vital Signs: Vital Signs Temperature 98.3 F 07/13/18 07:31 Pulse Rate 107 H 07/13/18 07:31 Respiratory Rate 20 07/13/18 07:31 Blood Pressure 133/64 07/13/18 07:31 O2 Sat by Pulse Oximetry 100 07/13/18 07:31 Intake & Output: Intake & Output 07/10/18 07/11/18 07/12/18 07/13/18 11:59 11:59 11:59 11:59 Intake Total 2081 960 Output Total 400 500 204 Balance -400 1581 756 Weight 59.7 kg - Lab Result Diagrams: 07/13/18 05:23 07/13/18 05:23 Lab Results-Last 24 Hrs: Lab Results-Last 24 Hours 07/13/18 07/13/18 Range/Units 05:23 05:23 WBC 3.7 L (4.0-10.5) K/mm3 RBC 3.56 L (4.1-5.4) M/mm3 Hgb 10.2 L (12.0-16.0) gm/dl Hct 32.7 L (35-47) % MCV 91.9 (78-100) fl MCH 28.6 (26-32) pg MCHC 31.2 L (32-36) g/dl RDW 14.4 H (11.5-14.0) % Plt Count 184 (150-450) K/mm3 MPV 12.6 H (6-9.5) fl Gran % 80.5 H (36.0-66.0) % Eos # (Auto) 0.09 (0-0.5) Absolute Lymphs (auto) 0.24 L (1.0-4.6) Absolute Monos (auto) 0.36 (0.0-1.3) Lymphocytes % 6.6 L (24.0-44.0) % Monocytes % 9.9 (0.0-12.0) % Eosinophils % 2.5 (0.00-5.0) % Basophils % 0.5 (0.0-0.4) % Absolute Granulocytes 2.94 (1.4-6.9) Basophils # 0.02 (0-0.4) Sodium 139 (137-145) mmol/L Potassium 4.4 (3.5-5.1) mmol/L Chloride 106 (98-107) mmol/L Carbon Dioxide 28 (22-30) mmol/L Anion Gap 8.8 (5-15) MEQ/L BUN 12 (7-17) mg/dL Creatinine 0.45 L (0.52-1.04) mg/dL Estimated GFR > 60.0 ML/MIN Glucose 99 (74-106) mg/dL Calcium 8.8 (8.4-10.2) mg/dL Micro Results-Entire Visit: Microbiology 07/11/18 06:20 Urine Culture - Preliminary Clean Catch Midstream NO GROWTH TO DATE - Radiology Exams Ordered Rad Exams-Entire Visit: Radiology Procedures Category Date Time Status CHEST 2 VIEWS (PA AND LAT) Routine Exams 07/12/18 09:45 Completed - Procedures and Test Procedures and Tests throughout Hospitalization: Therapy Orders & Screens 07/12/18 11:08 Respiratory Nebulizer UD Comment: ALBUTEROL QID Diagnosis: Hemoperitoneum 07/12/18 11:09 Peak Expiratory Flow Rate ONCE Comment: Reason For Exam: Diagnosis: Hemoperitoneum Respiratory Therapy Assessment DAILY Comment: Diagnosis: Hemoperitoneum Discharge Exam General Appearance: no apparent distress, alert Neurologic Exam: alert, oriented x 3, cooperative, normal mood/affect, nml cerebellar function, sensation nml, No motor deficits Skin Exam: normal color, warm, dry Respiratory Exam: normal breath sounds, lungs clear, No respiratory distress Cardiovascular Exam: regular rate/rhythm, normal heart sounds Gastrointestinal/Abdomen Exam: soft, No tenderness, No mass Extremity Exam: normal inspection, normal range of motion Final Diagnosis/Problem List - Final Discharge Diagnosis/Problem (1) Acute bronchitis Current Visit: Yes Status: Acute Assessment & Plan: home on po levaquin (2) Abdominal pain Current Visit: Yes Status: Acute (3) Hemoperitoneum (nontraumatic) Current Visit: Yes Status: Acute Assessment & Plan: likely ruptured hemorrhagic cyst etc - Discharge Disposition: Home, Self-Care Condition: Stable Prescriptions: New Levofloxacin [Levofloxacin 500 MG Tablet] 500 mg PO DAILY #5 tablet Hydrocod Psx/Chlor-Joseph [Tussionex Pennkinetic Susp] 5 ml PO Q12H PRN PRN #120 ml MDD 10mL PRN Reason: Cough Continue Tramadol HCl 50 mg [Ultram 50 mg] 50 mg PO HSPRN PRN PRN Reason: Pain Ropinirole HCl 0.25 mg PO HS Norgestimate-Ethinyl Estradiol [Tri Femynor 28 Tablet] 1 tab PO QAM Lisinopril 20 mg PO QAM Fingolimod HCl [Gilenya] 0.5 mg PO QAM Cyanocobalamin 500 Mcg [Vitamin B-12 500 MCG] 1,500 mcg PO QAM Cholecalciferol (Vitamin D3) [Vitamin D] 4,000 unit PO QAM L.acidoph,Paracasei, B.lactis [Probiotic] 1 each PO QAM Additional Instructions: return to the ER for severe abdominal pain, inability to tolerate oral intake or new problems or concerns. Follow up with: LOBO LOCKHART MD [Primary Care Provider] - 1 Week
[2018-07-13 10:22] LABS: Slide Review 1 YES
== END 2018-07-13 10:00 | disposition home or self-care (01) ==
LOC: ED 03:10 → MED SURG 07:22
PROVIDERS: ADMIT Family Medicine; ATTEND Family Medicine
DX: J20.9 Acute bronchitis, unspecified (principal); R10.9 Unspecified abdominal pain; K66.1 Hemoperitoneum; I10 Essential (primary) hypertension; G35 Multiple sclerosis; Z79.899 Other long term (current) drug therapy
CPT/HCPCS: 36000; 36415; 71046; 74177; 80048; 80053; 81001; 82150; 83690; 84484; 84703; 85014; 85018; 85025; 87086; 93005; 93268; 94150; 94640; 94760; 96360; 96374; 96375; 99285; G0378; J7609; 90662; G0008; J1885; J2405; A9270-GY

== ENCOUNTER 2019-08-11 13:53 | Emergency (ER) | payer BC, OTHER ==
--- NOTE | 2019-08-11 14:39 | ERPHSYRPT ---
- History of Present Illness Time Seen by Provider: 08/11/19 14:20 Historian: patient Exam Limitations: no limitations Patient Subjective Stated Complaint: Pt c/o of pain below and to the right of the umbilicus, the pain radiated all over her abdomen last night but today it is centralized Triage Nursing Assessment: Pt walked into the ER, hypertensive, pain with released palpatation to the RLQ, afebrile, hx of MS, pulses normal lungs clear Physician History: Patient began having generalized abdominal pain yesterday with some local periumbilical pain earlier this morning with a few sharp episodes. Timing/Duration: yesterday Activities at Onset: none Quality: aching (mainly today), stabbing (early this morning) Abdominal Pain Onset Location: periumbilical (today), generalized abdomen ( yesterday) Pain Radiation: flank (possibly to the right side) Severity of Pain-Max: severe Severity of Pain-Current: mild Associated Symptoms: No back, No chest pain, No diaphoresis, No diarrhea, No fever/chills, No fatigue, No headache, No heartburn, No loss of appetite, No nausea, No neck pain, No rash, No shortness of breath, No syncope, No vomiting, No weakness Previous symptoms: same symptoms as today (had a ruptured ovarian cyst last year with similar type symptoms), no recent treatment Allergies/Adverse Reactions: banana Allergy (Verified 08/11/19 14:26) latex Allergy (Verified 08/11/19 14:26) oxytetracycline [From Terramycin] Allergy (Verified 08/11/19 14:26) Penicillins Allergy (Verified 08/11/19 14:26) Sulfa (Sulfonamide Antibiotics) Allergy (Verified 08/11/19 14:26) olive oil Adverse Reaction (Verified 08/11/19 14:26) Swelling of Tongue and Lips Home Medications: Fingolimod HCl [Gilenya] 0.5 mg PO QAM 05/18/18 [History] Lisinopril 20 mg PO QAM 05/18/18 [History] Norgestimate-Ethinyl Estradiol [Tri Femynor 28 Tablet] 1 tab PO QAM 05/18/18 [ History] Tramadol HCl 50 mg [Ultram 50 mg] 50 mg PO HSPRN PRN 05/18/18 [History] Cholecalciferol (Vitamin D3) [Vitamin D] 5,000 unit PO QAM 07/11/18 [ History] Gabapentin 600 mg PO BID 08/11/19 [History] - Review of Systems Constitutional: No Fever, No Chills, No Fatigue Eyes: No Eye Pain Ears, Nose, & Throat: No Mouth Swelling, No Throat Swelling Respiratory: No Cough, No Dyspnea Abdominal/Gastrointestinal: Abdominal Pain, No Nausea, No Vomiting, No Diarrhea , No Constipation, No Hematemesis, No Hematochezia, No Melena Genitourinary Symptoms: No Dysuria, No Frequency, No Hematuria, No Urinary Retention, No Flank Pain Musculoskeletal: No Back Pain, No Neck Pain Skin: No Pruritis, No Rash Neurological: No Dizziness, No Headache, No Paralysis, No Parasthesia Psychological: No Anxiety, No Emotional Lability Endocrine: No Excessive Sweating Hematologic/Lymphatic: No Easy Bleeding, No Easy Bruising All Other Systems: Reviewed and Negative - Past Medical History Pertinent Past Medical History: Yes Neurological History: Other ENT History: No Pertinent History Cardiac History: Hypertension Respiratory History: No Pertinent History Endocrine Medical History: No Pertinent History Musculoskeletal History: No Pertinent History GI Medical History: No Pertinent History History: No Pertinent History Psycho-Social History: No Pertinent History Female Reproductive Disorders: No Pertinent History Other Medical History: Multiple Sclerosis - Past Surgical History Past Surgical History: Yes Neuro Surgical History: No Pertinent History Cardiac: No Pertinent History Respiratory: No Pertinent History Gastrointestinal: Cholecystectomy Genitourinary: No Pertinent History Musculoskeletal: No Pertinent History Female Surgical History: Section Other Surgical History: 2 C sections - Social History Smoking Status: Former smoker Exposure to second hand smoke: No Drug Use: none Patient Lives Alone: No - Female History Hx Now: No - Nursing Vital Signs Nursing Vital Signs: Initial Vital Signs Temperature 98.2 F 08/11/19 14:11 Pulse Rate 95 H 08/11/19 14:11 Blood Pressure 195/115 08/11/19 14:11 O2 Sat by Pulse Oximetry 100 08/11/19 14:11 Pain Scale Pain Intensity 5 - Physical Exam General Appearance: no apparent distress, alert Eye Exam: PERRL/EOMI, eyes nml inspection, No scleral icterus, No pale conjunctivae Ears, Nose, Throat Exam: pharynx normal, moist mucous membranes Neck Exam: normal inspection, non-tender, supple, full range of motion, No meningismus, No Brudzinski, No limited range of motion Respiratory Exam: normal breath sounds, lungs clear, airway intact, No chest tenderness, No respiratory distress, No accessory muscle use, No crackles/rales , No rhonchi, No wheezing, No pleural rub Cardiovascular Exam: regular rate/rhythm, normal heart sounds, normal peripheral pulses, capillary refill <2 sec Gastrointestinal/Abdomen Exam: soft, normal bowel sounds, No tenderness, No distention, No mass, No guarding, No ecchymosis Back Exam: normal inspection, normal range of motion, No CVA tenderness, No vertebral tenderness, No rash Extremity Exam: normal inspection, normal range of motion, pelvis stable, No calf tenderness, No mya's sign, No inflammation Neurologic Exam: alert, oriented x 3, cooperative, 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, normal mood/affect, sensation nml, No sensory deficit Skin Exam: normal color, warm, dry, No rash, No petechiae, No cyanosis SpO2 Interpretation: normal SpO2: 100 O2 Delivery: Room Air Ordered Tests: Active Orders 24 hr Category Date Time Status EKG-ER Only STAT Care 08/11/19 16:12 Active IV Insertion STAT Care 08/11/19 16:12 Active AMYLASE Stat Lab 08/11/19 16:21 Completed CBC W DIFF Stat Lab 08/11/19 16:21 Completed CMP Stat Lab 08/11/19 16:21 Completed CULTURE,URINE Stat Lab 08/11/19 14:31 Received HCG,QUALITATIVE URINE Stat Lab 08/11/19 14:31 Completed LIPASE Stat Lab 08/11/19 16:21 Completed Lactic Acid Stat Lab 08/11/19 16:37 Completed PROTIME WITH INR Stat Lab 08/11/19 16:21 Completed TROPONIN Q3H Lab 08/11/19 16:21 Completed TROPONIN Q3H Lab 08/11/19 19:15 Ordered TROPONIN Q3H Lab 08/11/19 22:15 Ordered TROPONIN Q3H Lab 08/12/19 01:15 Ordered TROPONIN Q3H Lab 08/12/19 03:15 Ordered UA W/RFX UR CULTURE Stat Lab 08/11/19 14:31 Completed Medication Summary Discontinued Medications Generic Name Dose Route Start Last Admin Trade Name Freq PRN Reason Stop Dose Admin Sodium Chloride 1,000 mls @ 999 mls/hr 08/11/19 16:12 08/11/19 17:17 Sodium Chloride 0.9% 1000 Ml IV 08/11/19 17:12 Infused .Q1H1M STA Infusion Sodium Chloride Confirm 08/11/19 16:21 Sodium Chloride 0.9% 1000 Ml Administered 08/11/19 16:22 Dose 1,000 mls @ ud .ROUTE .STK-MED ONE Ketorolac Tromethamine 30 mg 08/11/19 16:42 08/11/19 16:53 Toradol 30 Mg Injection IV 08/11/19 16:43 30 mg STAT ONE Administration Ketorolac Tromethamine Confirm 08/11/19 16:52 Toradol 30 Mg Injection Administered 08/11/19 16:53 Dose 30 mg .ROUTE .STK-MED ONE Lab/Rad Data: Laboratory Result Diagrams 08/11/19 16:21 08/11/19 16:21 Laboratory Results 08/11/19 08/11/19 08/11/19 Range/Units 16:37 16:21 16:21 WBC (4.0-10.5) K/mm3 RBC (4.1-5.4) M/mm3 Hgb (12.0-16.0) gm/dl Hct (35-47) % MCV (78-100) fl MCH (26-32) pg MCHC (32-36) g/dl RDW (11.5-14.0) % Plt Count (150-450) K/mm3 MPV (6-9.5) fl Gran % (36.0-66.0) % Eos # (Auto) (0-0.5) Absolute Lymphs (auto) (1.0-4.6) Absolute Monos (auto) (0.0-1.3) Lymphocytes % (24.0-44.0) % Monocytes % (0.0-12.0) % Eosinophils % (0.00-5.0) % Basophils % (0.0-0.4) % Absolute Granulocytes (1.4-6.9) Basophils # (0-0.4) PT 10.9 (9.95-12.35) SECONDS INR 0.97 (0.8-3.0) Sodium (137-145) mmol/L Potassium (3.5-5.1) mmol/L Chloride (98-107) mmol/L Carbon Dioxide (22-30) mmol/L Anion Gap (5-15) MEQ/L BUN (7-17) mg/dL Creatinine (0.52-1.04) mg/dL Estimated GFR ML/MIN Glucose (74-106) mg/dL Lactic Acid 0.8 (0.4-2.0) Calcium (8.4-10.2) mg/dL Total Bilirubin (0.2-1.3) mg/dL AST (14-36) U/L ALT (0-35) U/L Alkaline Phosphatase (38-126) U/L Troponin I < 0.012 (0.000-0.034) ng/mL Serum Total Protein (6.3-8.2) g/dL Albumin (3.5-5.0) g/dL Amylase (30-110) U/L Lipase (23-300) U/L Urine Color (YELLOW) Urine Appearance (CLEAR) Urine pH (5-6) Ur Specific [place] (1.005-1.025) Urine Protein (Negative) Urine Ketones (NEGATIVE) Urine Blood (0-5) Tavo/ul Urine Nitrite (NEGATIVE) Urine Bilirubin (NEGATIVE) Urine Urobilinogen (0-1) mg/dL Ur Leukocyte Esterase (NEGATIVE) Urine WBC (Auto) (0-5) /HPF Urine RBC (Auto) (0-2) /HPF U Hyaline Cast (Auto) (0-2) /LPF U Epithel Cells (Auto) (FEW) /HPF Urine Bacteria (Auto) (NEGATIVE) /HPF Urine Mucus (Auto) (NEGATIVE) /HPF Urine Culture Reflexed (NO) Urine Glucose (NEGATIVE) mg/dL Urine HCG, Qual (Negative) 08/11/19 08/11/19 08/11/19 Range/Units 16:21 16:21 14:31 WBC 5.4 (4.0-10.5) K/mm3 RBC 4.11 (4.1-5.4) M/mm3 Hgb 12.5 (12.0-16.0) gm/dl Hct 38.6 (35-47) % MCV 93.9 (78-100) fl MCH 30.4 (26-32) pg MCHC 32.4 (32-36) g/dl RDW 13.5 (11.5-14.0) % Plt Count 112 L (150-450) K/mm3 MPV 12.7 H (6-9.5) fl Gran % 83.5 H (36.0-66.0) % Eos # (Auto) 0.04 (0-0.5) Absolute Lymphs (auto) 0.29 L (1.0-4.6) Absolute Monos (auto) 0.56 (0.0-1.3) Lymphocytes % 5.3 L (24.0-44.0) % Monocytes % 10.3 (0.0-12.0) % Eosinophils % 0.7 (0.00-5.0) % Basophils % 0.2 (0.0-0.4) % Absolute Granulocytes 4.53 (1.4-6.9) Basophils # 0.01 (0-0.4) PT (9.95-12.35) SECONDS INR (0.8-3.0) Sodium 142 (137-145) mmol/L Potassium 3.8 (3.5-5.1) mmol/L Chloride 108 H (98-107) mmol/L Carbon Dioxide 25 (22-30) mmol/L Anion Gap 12.4 (5-15) MEQ/L BUN 9 (7-17) mg/dL Creatinine 0.41 L (0.52-1.04) mg/dL Estimated GFR > 60.0 ML/MIN Glucose 87 (74-106) mg/dL Lactic Acid (0.4-2.0) Calcium 9.5 (8.4-10.2) mg/dL Total Bilirubin 0.60 (0.2-1.3) mg/dL AST 18 (14-36) U/L ALT 11 (0-35) U/L Alkaline Phosphatase 63 (38-126) U/L Troponin I (0.000-0.034) ng/mL Serum Total Protein 7.5 (6.3-8.2) g/dL Albumin 4.2 (3.5-5.0) g/dL Amylase 61 (30-110) U/L Lipase 42 (23-300) U/L Urine Color YELLOW (YELLOW) Urine Appearance SLIGHTLY CLOUDY (CLEAR) Urine pH 6.0 (5-6) Ur Specific [place] 1.016 (1.005-1.025) Urine Protein NEGATIVE (Negative) Urine Ketones SMALL (NEGATIVE) Urine Blood MODERATE (0-5) Tavo/ul Urine Nitrite NEGATIVE (NEGATIVE) Urine Bilirubin NEGATIVE (NEGATIVE) Urine Urobilinogen NEGATIVE (0-1) mg/dL Ur Leukocyte Esterase NEGATIVE (NEGATIVE) Urine WBC (Auto) 3-5 (0-5) /HPF Urine RBC (Auto) 0-2 (0-2) /HPF U Hyaline Cast (Auto) 3-5 (0-2) /LPF U Epithel Cells (Auto) FEW (FEW) /HPF Urine Bacteria (Auto) MANY (NEGATIVE) /HPF Urine Mucus (Auto) MODERATE (NEGATIVE) /HPF Urine Culture Reflexed YES (NO) Urine Glucose NEGATIVE (NEGATIVE) mg/dL Urine HCG, Qual (Negative) 08/11/19 Range/Units 14:31 WBC (4.0-10.5) K/mm3 RBC (4.1-5.4) M/mm3 Hgb (12.0-16.0) gm/dl Hct (35-47) % MCV (78-100) fl MCH (26-32) pg MCHC (32-36) g/dl RDW (11.5-14.0) % Plt Count (150-450) K/mm3 MPV (6-9.5) fl Gran % (36.0-66.0) % Eos # (Auto) (0-0.5) Absolute Lymphs (auto) (1.0-4.6) Absolute Monos (auto) (0.0-1.3) Lymphocytes % (24.0-44.0) % Monocytes % (0.0-12.0) % Eosinophils % (0.00-5.0) % Basophils % (0.0-0.4) % Absolute Granulocytes (1.4-6.9) Basophils # (0-0.4) PT (9.95-12.35) SECONDS INR (0.8-3.0) Sodium (137-145) mmol/L Potassium (3.5-5.1) mmol/L Chloride (98-107) mmol/L Carbon Dioxide (22-30) mmol/L Anion Gap (5-15) MEQ/L BUN (7-17) mg/dL Creatinine (0.52-1.04) mg/dL Estimated GFR ML/MIN Glucose (74-106) mg/dL Lactic Acid (0.4-2.0) Calcium (8.4-10.2) mg/dL Total Bilirubin (0.2-1.3) mg/dL AST (14-36) U/L ALT (0-35) U/L Alkaline Phosphatase (38-126) U/L Troponin I (0.000-0.034) ng/mL Serum Total Protein (6.3-8.2) g/dL Albumin (3.5-5.0) g/dL Amylase (30-110) U/L Lipase (23-300) U/L Urine Color (YELLOW) Urine Appearance (CLEAR) Urine pH (5-6) Ur Specific [place] (1.005-1.025) Urine Protein (Negative) Urine Ketones (NEGATIVE) Urine Blood (0-5) Tavo/ul Urine Nitrite (NEGATIVE) Urine Bilirubin (NEGATIVE) Urine Urobilinogen (0-1) mg/dL Ur Leukocyte Esterase (NEGATIVE) Urine WBC (Auto) (0-5) /HPF Urine RBC (Auto) (0-2) /HPF U Hyaline Cast (Auto) (0-2) /LPF U Epithel Cells (Auto) (FEW) /HPF Urine Bacteria (Auto) (NEGATIVE) /HPF Urine Mucus (Auto) (NEGATIVE) /HPF Urine Culture Reflexed (NO) Urine Glucose (NEGATIVE) mg/dL Urine HCG, Qual NEGATIVE (Negative) - Progress Progress: improved, re-examined Progress Note: 08/11/19 17:05 patient has no pain on repeat evaluation. No abdominal or CVA tenderness on repeat examination. Counseled pt/family regarding: lab results, diagnosis, need for follow-up - Departure Departure Disposition: Home Clinical Impression: Periumbilical abdominal pain, Essential hypertension Condition: Good Critical Care Time: No Referrals: LOBO LOCKHART MD [Primary Care Provider] - 08/13/19 Instructions: High Blood Pressure (DC), Acute Abdomen (Belly Pain), Adult (DC) , Flank Pain (DC) Additional Instructions: Return immediately back to the emergency department if any new fever, worse abdominal pain, new localized abdominal pain, new back pain, new blood in urine , new urinary symptoms or any other concerning signs or symptoms that were not present at today's emergency department visit for immediate re-evaluation in the emergency department.
[2019-08-11 15:16] LABS: Appearance SLIGHTLY CLOUDY (CLEAR); Bacteria MANY /HPF (NEGATIVE); Bilirubin NEGATIVE (NEGATIVE); Blood MODERATE Ery/ul (0-5); Epithelial Cells FEW /HPF (FEW); Glucose NEGATIVE (NEGATIVE); Ketones SMALL (NEGATIVE); Leukocyte Esterase NEGATIVE (NEGATIVE); Mucus MODERATE /HPF (NEGATIVE); Nitrite NEGATIVE (NEGATIVE); Protein,Urine Dip NEGATIVE (Negative); RBC 0-2 /HPF (0-2); Specific Gravity 1.016 (1.005-1.025); Urobilinogen NEGATIVE mg/dL (0-1)
[2019-08-11] MEDS ORDERED: Sodium Chloride 0.9% 1000 ML 1,000 ML ONE (16:21)
[2019-08-11] MEDS: Sodium Chloride 0.9% 1000 ML 1,000 ML IV STA (16:22)
[2019-08-11 16:27] LABS: Absolute Neutrophil Ct (ANC) 4.53 (1.4-6.9); BASOPHIL % 0.2 % (0.0-0.4); Basophil (Absolute #) 0.01 (0-0.4); Eosinophil % 0.7 % (0.00-5.0); Eosinophil (Absolute #) 0.04 (0-0.5); Hematocrit 38.6 % (35-47); Hemoglobin 12.5 gm/dl (12.0-16.0); Lymphocyte (Absolute #) 0.29 (1.0-4.6); Lymphocytes % 5.3 % (24.0-44.0); Mean Cell Volume 93.9 fl (78-100); Mean Corpuscular Hemoglobin 30.4 pg (26-32); Mean Corpuscular Hgb Concent. 32.4 g/dl (32-36); Mean Platelet Volume 12.7 fl (6-9.5); Monocyte (Absolute #) 0.56 (0.0-1.3); Monocytes % 10.3 % (0.0-12.0); Neutrophil % 83.5 % (36.0-66.0); Platelet Count 112 K/mm3 (150-450); Red Blood Count 4.11 M/mm3 (4.1-5.4); Red Cell Distribution Width 13.5 % (11.5-14.0); White Blood Count 5.4 K/mm3 (4.0-10.5)
[2019-08-11 16:31] LABS: INR 0.97 (0.8-3.0); PROTIME 10.9 SECONDS (9.95-12.35)
[2019-08-11 16:45] LABS: ALBUMIN 4.2 g/dL (3.5-5.0); ALKALINE PHOSPHATASE 63 U/L (38-126); AMYLASE 61 U/L (30-110); ANION GAP 12.4 MEQ/L (5-15); BLOOD UREA NITROGEN 9 mg/dL (7-17); CHLORIDE 108 mmol/L (98-107); Calcium 9.5 mg/dL (8.4-10.2); Carbon Dioxide 25 mmol/L (22-30); Creatinine 1 0.41 mg/dL (0.52-1.04); Glucose 87 mg/dL (74-106); LIPASE 42 U/L (23-300); Potassium 3.8 mmol/L (3.5-5.1); SGOT/AST 18 U/L (14-36); SGPT/ALT 11 U/L (0-35); SODIUM 142 mmol/L (137-145); Total Protein 7.5 g/dL (6.3-8.2)
[2019-08-11] MEDS ORDERED: TORAdol 30 mg Injection ONE (16:52)
[2019-08-11] MEDS: TORAdol 30 mg Injection IV ONE (16:53)
[2019-08-11 17:35] VITALS: BP 163/89; PULSE 88; O2SAT 98
== END 2019-08-11 17:36 | disposition home or self-care (01) ==
LOC: ED 13:53
DX: R10.33 Periumbilical pain (principal); I10 Essential (primary) hypertension
CPT/HCPCS: 36415; 80053; 81001; 82150; 83605; 83690; 84484; 84703; 85025; 85610; 87086; 96360; 96374; 99284; J1885

== ENCOUNTER 2021-04-30 03:20 | Emergency (ER) | payer OTHER ==
--- NOTE | 2021-04-30 03:49 | ERPHSYRPT ---
- History of Present Illness Time Seen by Provider: 04/30/21 03:35 Source: patient Patient Subjective Stated Complaint: pt states "I began to have pain this morning." Triage Nursing Assessment: pt ambulated into the er; pt is axo x4; c/o dental pain; pt has swelling to rt lower jaw; pt has tooth caries to left lower jaw; pt states 7/10 pain; swelling present to left lymph node; pt states her teeth became brittle after starting gilenya 3 years ago; vitals wnl Physician History: Patient is a 51-year-old female presents to our ED with complaints of dental pain and jaw swelling that was observed today. Patient took 3 500 mg of Keflex today however she just ran out. Patient states the pain is 7 out of 10. Patient declined pain medication. Patient states her pain is well controlled at this time with Tylenol and ibuprofen. Patient states her teeth are brittle and have been cracking because of Gilenya which she is taking for her MS. Pain described as an ache that is well localized. No radiation. Pain worse with mastication. No trauma. No fever. Patient tolerating oral secretions well. Symptoms are mild to moderate in intensity. Percussion to the involved tooth reproduce symptoms. Pain is localized to the first bicuspid/premolar (tooth #5). Patient declined pain medication she voices no other complaints concerns at this time. Timing/Duration: today Severity: mild Associated Symptoms: denies symptoms Allergies/Adverse Reactions: banana Allergy (Verified 04/30/21 03:25) latex Allergy (Verified 04/30/21 03:25) oxytetracycline [From Terramycin] Allergy (Verified 04/30/21 03:25) Penicillins Allergy (Verified 04/30/21 03:25) Sulfa (Sulfonamide Antibiotics) Allergy (Verified 04/30/21 03:25) olive oil Adverse Reaction (Verified 04/30/21 03:25) Swelling of Tongue and Lips Home Medications: Fingolimod HCl [Gilenya] 0.5 mg PO QAM 05/18/18 [History] Norgestimate-Ethinyl Estradiol [Tri Femynor 28 Tablet] 1 tab PO QAM 05/18/18 [History] Tramadol HCl 50 mg [Ultram 50 mg] 50 mg PO HSPRN PRN 05/18/18 [History] lisinopriL [Lisinopril] 20 mg PO QAM 05/18/18 [History] Cholecalciferol (Vitamin D3) [Vitamin D] 5,000 unit PO QAM 07/11/18 [History] Gabapentin 600 mg PO BID 08/11/19 [History] Hx Tetanus, Diphtheria Vaccination/Date Given: Yes Hx Influenza Vaccination/Date Given: Yes Hx Pneumococcal Vaccination/Date Given: No Travel Risk - International Travel Have you traveled outside of the country in past 3 weeks: No - Coronavirus Screening Are you exhibiting any of the following symptoms?: No Close contact with a COVID-19 positive Pt in past 14-21 Days: No - Vaccine Status Have you recieved a Covid-19 vaccination: Yes 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: [employer] - Review of Systems Constitutional: No Symptoms, No Fever, No Chills Eyes: No Symptoms Ears, Nose, & Throat: No Symptoms Respiratory: No Symptoms, No Cough, No Dyspnea Cardiac: No Symptoms, No Chest Pain, No Edema, No Syncope Abdominal/Gastrointestinal: No Symptoms, No Abdominal Pain, No Nausea, No Vomiting, No Diarrhea Genitourinary Symptoms: No Symptoms, No Dysuria Musculoskeletal: No Symptoms, No Back Pain, No Neck Pain Skin: No Symptoms, No Rash Neurological: No Symptoms, No Dizziness, No Focal Weakness, No Sensory Changes Psychological: No Symptoms Endocrine: No Symptoms Hematologic/Lymphatic: No Symptoms Immunological/Allergic: No Symptoms All Other Systems: Reviewed and Negative - Past Medical History Pertinent Past Medical History: Yes Neurological History: Other ENT History: No Pertinent History Cardiac History: Hypertension Respiratory History: No Pertinent History Endocrine Medical History: No Pertinent History Musculoskeletal History: No Pertinent History GI Medical History: No Pertinent History History: No Pertinent History Psycho-Social History: No Pertinent History Female Reproductive Disorders: No Pertinent History Other Medical History: Multiple Sclerosis - Past Surgical History Past Surgical History: Yes Neuro Surgical History: No Pertinent History Cardiac: No Pertinent History Respiratory: No Pertinent History Gastrointestinal: Cholecystectomy Genitourinary: No Pertinent History Musculoskeletal: No Pertinent History Female Surgical History: Section Other Surgical History: 2 C sections - Social History Smoking Status: Former smoker Exposure to second hand smoke: No Drug Use: none Patient Lives Alone: No - Female History Hx Now: No - Nursing Vital Signs Nursing Vital Signs: Initial Vital Signs Temperature 98.3 F 04/30/21 03:25 Pulse Rate 83 07/22/21 03:25 Respiratory Rate 16 04/30/21 03:25 Blood Pressure 100/65 04/30/21 03:25 O2 Sat by Pulse Oximetry 98 04/30/21 03:25 Pain Scale Pain Intensity 7 - Physical Exam General Appearance: no apparent distress, alert Eye Exam: PERRL/EOMI, eyes nml inspection Ears, Nose, Throat Exam: normal ENT inspection, TMs normal, pharynx normal, moist mucous membranes, other (5., First bicuspid is fractured. There appears to be a dental abscess at this location. The adjacent gingiva is irritated. No signs of Babak angina. Patient appears to be poor which she attributes to Gilenya meaning oral exam essentially nonremarkable.) Neck Exam: normal inspection, non-tender, supple, full range of motion, other (Right submandibular lymphadenopathy.) Respiratory Exam: normal breath sounds, lungs clear, No respiratory distress Cardiovascular Exam: regular rate/rhythm, normal heart sounds, normal peripheral pulses Gastrointestinal/Abdomen Exam: soft, normal bowel sounds, No tenderness, No mass Back Exam: normal inspection, normal range of motion, No CVA tenderness, No vertebral tenderness Extremity Exam: normal inspection, normal range of motion, pelvis stable Neurologic Exam: alert, oriented x 3, cooperative, normal mood/affect, sensation nml, No motor deficits Skin Exam: normal color, warm, dry, No rash Lymphatic Exam: adenopathy, other (Right submandibular lymphadenopathy.) SpO2 Interpretation: normal SpO2: 98 O2 Delivery: Room Air - Course Nursing assessment & vital signs reviewed: Yes - Progress Progress: improved Progress Note: 11-year-old female presents to our ED with a dental abscess at tooth #5. Patient attributes bad dentition to Gilenya which she takes for MS. To swelling observed today. Patient has a dental abscess. She started taking Keflex today. Patient has multiple antibiotic allergies. However patient can tolerate Keflex. Patient also has an allergy to clindamycin. Patient initiated Keflex today. We will continue the Keflex antibiotic via prescription. The prescription was forwarded to patient's pharmacy. Patient declined pain medication. She is managing her pain with Tylenol and Motrin [id number]. She will be follow-up with her dentist this week. Patient voices no other complaints or concerns at this time. Will discharge home. 04/30/21 04:00 Counseled pt/family regarding: diagnosis, need for follow-up - Departure Departure Disposition: Home Clinical Impression: Dental abscess, Pain, dental Condition: Stable Critical Care Time: No Referrals: LOBO LOCKHART MD [Primary Care Provider] - Instructions: Tooth Abscess (DC), Tooth Decay, Adult (DC), Dental Pain (DC) Prescriptions: Cephalexin Mh 500 mg [Keflex 500 mg] 500 mg PO TID 7 Days #21 capsule
[2021-04-30 03:54] VITALS: BP 125/69; PULSE 72
[2021-04-30 03:56] VITALS: O2SAT 98
== END 2021-04-30 03:57 | disposition home or self-care (01) ==
LOC: ED 03:20
DX: K04.7 Periapical abscess without sinus (principal); K08.89 Other specified disorders of teeth and supporting structures
CPT/HCPCS: 99283